=== PATIENT | female | born 1935 | race Caucasian/White ===

== ENCOUNTER 2024-04-05 13:19 | Emergency (ER) | payer OTHER ==
[~2024-04-05] VITALS: Ht 157.5 cm; Wt 63.5 kg
[2024-04-05 13:31] VITALS: BP_SYST 194; PULSE 77; RESP 17; TEMP 97.9; O2SAT 78
[2024-04-05] MEDS: cloNIDine HCL 0.1 MG TABLET PO ONE (13:46)
[2024-04-05 14:01] LABS: BASOPHILS % (AUTO) 0.6 % (0.0-2.0); EOSINOPHILS # (AUTO) 0.1 K/uL (0.0-0.4); EOSINOPHILS % (AUTO) 1.2 % (0.0-4.0); HEMATOCRIT 42.6 % (36-48); HEMOGLOBIN 14.6 g/dL (12.0-16.0); LYMPHOCYTES # (AUTO) 1.7 K/uL (1.0-5.5); LYMPHOCYTES % (AUTO) 25.2 % (20.5-51.5); MEAN CORPUSCULAR HEMOGLOBIN 32 pg (27-31); MEAN CORPUSCULAR HGB CONC 34 % (32-36); MEAN CORPUSCULAR VOLUME 93 fL (79.0-98.0); MONOCYTES # (AUTO) 0.6 K/uL (0.0-1.0); MONOCYTES % (AUTO) 8.2 % (1.7-9.3); NEUTROPHILS # (AUTO) 4.4 K/uL (1.8-7.7); NEUTROPHILS % (AUTO) 64.8 % (40.0-70.0); PLATELET COUNT (AUTO) 179 K/uL (130-430); RED CELL DISTRIBUTION WIDTH 13.2 % (9.0-15.0); WHITE BLOOD COUNT (AUTO) 6.8 K/uL (4.8-10.8)
[2024-04-05 14:20] LABS: PROTHROMBIN TIME 9.9 SECS (9.5-12.5)
[2024-04-05 14:23] LABS: ANION GAP 5 (5-15); CALCIUM 9.6 mg/dL (8.4-11.0); CARBON DIOXIDE 29 mmol/L (23-29); CHLORIDE 103 mmol/L (98-107); CREATININE 0.75 mg/dL (0.55-1.30); GLUCOSE 140 mg/dL (74-106); POTASSIUM 4.4 mmol/L (3.5-5.1); SODIUM SERUM 137 mmol/L (136-145); UREA NITROGEN, BLOOD 12 mg/dL (8-21)
[2024-04-05 14:59] VITALS: BP_SYST 161; PULSE 69; RESP 18; TEMP 98; O2SAT 100
== END 2024-04-05 15:00 | disposition home or self-care (01) ==
LOC: SED 13:19
DX: I16.0 Hypertensive urgency (principal); R07.9 Chest pain, unspecified
CPT/HCPCS: 36415; 71045; 80048; 83880; 84484; 85025; 85610; 85730; 93005; 99285

== ENCOUNTER 2024-04-08 17:07 | Inpatient (IN) | payer OTHER ==
[~2024-04-08] VITALS: Ht 160 cm; Wt 66.7 kg
[2024-04-08 17:18] VITALS: BP_SYST 158; PULSE 76; RESP 18; TEMP 98.3; O2SAT 98
[2024-04-08] MEDS: NITROGLYCERIN 1 INCH (GM) OINT. TP ONE (17:44)
[2024-04-08 17:45] LABS: BASOPHILS % (AUTO) 0.5 % (0.0-2.0); EOSINOPHILS # (AUTO) 0.1 K/uL (0.0-0.4); EOSINOPHILS % (AUTO) 1.1 % (0.0-4.0); HEMATOCRIT 40.2 % (36-48); HEMOGLOBIN 13.8 g/dL (12.0-16.0); LYMPHOCYTES # (AUTO) 2.2 K/uL (1.0-5.5); LYMPHOCYTES % (AUTO) 32.2 % (20.5-51.5); MEAN CORPUSCULAR HEMOGLOBIN 31 pg (27-31); MEAN CORPUSCULAR HGB CONC 34 % (32-36); MEAN CORPUSCULAR VOLUME 92 fL (79.0-98.0); MONOCYTES # (AUTO) 0.5 K/uL (0.0-1.0); MONOCYTES % (AUTO) 6.9 % (1.7-9.3); NEUTROPHILS % (AUTO) 59.3 % (40.0-70.0); PLATELET COUNT (AUTO) 168 K/uL (130-430); RED BLOOD CELL COUNT(AUTO) 4.39 MIL/uL (4.2-6.2); RED CELL DISTRIBUTION WIDTH 13.2 % (9.0-15.0); WHITE BLOOD COUNT (AUTO) 6.8 K/uL (4.8-10.8)
[2024-04-08] MEDS: ASPIRIN 81 MG TAB.CHEW PO ONE (17:46)
[2024-04-08] MEDS: NITROGLYCERIN 0.4 MG TAB.SUBL SL ONE (17:46)
[2024-04-08 18:08] LABS: ANION GAP 5 (5-15); CALCIUM 9.2 mg/dL (8.4-11.0); CARBON DIOXIDE 28 mmol/L (23-29); CHLORIDE 105 mmol/L (98-107); CREATININE 0.67 mg/dL (0.55-1.30); GLUCOSE 108 mg/dL (74-106); POTASSIUM 4.1 mmol/L (3.5-5.1); SODIUM SERUM 138 mmol/L (136-145); UREA NITROGEN, BLOOD 15 mg/dL (8-21)
[2024-04-08] MEDS ORDERED: ATOR40TA68 PO (18:11)
[2024-04-08] MEDS ORDERED: OFLO5DRO6 LEFT EYE (18:11)
[2024-04-08] MEDS ORDERED: LISI20TA30 PO (18:11)
[2024-04-08] MEDS ORDERED: ALBUTEROL SULFATE 0.083% 2.5 MG/3 ML VIAL.NEB INH PRN (19:00)
[2024-04-08] MEDS ORDERED: NITROGLYCERIN 0.4 MG TAB.SUBL SL PRN (19:00)
[2024-04-08] MEDS ORDERED: MORPHINE 2 MG/ML INJ. SYRINGE IVP PRN (19:00)
[2024-04-08] MEDS ORDERED: ONDANSETRON HCL 4 MG/2 ML VIAL IVP PRN (19:00)
[2024-04-08] MEDS ORDERED: HYDROcodone/ACETAMIN 10-325 MG TAB PO PRN (19:00)
[2024-04-08 19:13] LABS: PROTHROMBIN TIME 9.9 SECS (9.5-12.5)
[2024-04-08 19:17] LABS: ALBUMIN 3.6 g/dL (3.4-4.8); TOTAL BILIRUBIN 0.5 mg/dL (0.0-1.0); TOTAL PROTEIN, SERUM 7.4 g/dL (6.4-8.3)
[2024-04-08 19:27] LABS: BILIRUBIN,DIRECT 0.1 mg/dL (0.0-0.3)
[2024-04-08] MEDS: ATORVASTATIN 20 MG TABLET PO ONE (19:36)
[2024-04-08] MEDS: lisinopriL 20 MG TABLET PO ONE (19:37)
[2024-04-08 21:59] VITALS: BP_SYST 114; PULSE 84; RESP 18; TEMP 96.9
[2024-04-09] VITALS (7 sets, daily range): BP systolic 102–170; PULSE 62–96; RESP 16–20; TEMP 97.2–98.7; O2SAT 95–98
[2024-04-09] MEDS: ACETAMINOPHEN 325 MG TABLET PO PRN (03:21)
[2024-04-09 05:44] LABS: BASOPHILS % (AUTO) 0.5 % (0.0-2.0); EOSINOPHILS # (AUTO) 0.2 K/uL (0.0-0.4); EOSINOPHILS % (AUTO) 2.9 % (0.0-4.0); HEMATOCRIT 37.5 % (36-48); HEMOGLOBIN 12.7 g/dL (12.0-16.0); LYMPHOCYTES # (AUTO) 2.5 K/uL (1.0-5.5); LYMPHOCYTES % (AUTO) 43.5 % (20.5-51.5); MEAN CORPUSCULAR HEMOGLOBIN 32 pg (27-31); MEAN CORPUSCULAR HGB CONC 34 % (32-36); MEAN CORPUSCULAR VOLUME 93 fL (79.0-98.0); MONOCYTES # (AUTO) 0.5 K/uL (0.0-1.0); MONOCYTES % (AUTO) 7.9 % (1.7-9.3); NEUTROPHILS # (AUTO) 2.6 K/uL (1.8-7.7); NEUTROPHILS % (AUTO) 45.2 % (40.0-70.0); PLATELET COUNT (AUTO) 160 K/uL (130-430); RED BLOOD CELL COUNT(AUTO) 4.03 MIL/uL (4.2-6.2); RED CELL DISTRIBUTION WIDTH 13.2 % (9.0-15.0); WHITE BLOOD COUNT (AUTO) 5.8 K/uL (4.8-10.8)
[2024-04-09 07:31] LABS: ALANINE AMINOTRANSFERASE 17 U/L (12-78); ANION GAP 7 (5-15); ASPARTATE AMINOTRANSFERASE 13 U/L (10-37); CALCIUM 8.6 mg/dL (8.4-11.0); CARBON DIOXIDE 28 mmol/L (23-29); CHLORIDE 106 mmol/L (98-107); CREATININE 0.76 mg/dL (0.55-1.30); GLUCOSE 112 mg/dL (74-106); POTASSIUM 4.3 mmol/L (3.5-5.1); SODIUM SERUM 141 mmol/L (136-145); TOTAL BILIRUBIN 0.5 mg/dL (0.0-1.0); TOTAL PROTEIN, SERUM 6.4 g/dL (6.4-8.3); UREA NITROGEN, BLOOD 15 mg/dL (8-21)
[2024-04-09] MEDS: ASPIRIN 81 MG TAB.CHEW PO SCH (08:54)
[2024-04-09] MEDS: ATORVASTATIN 20 MG TABLET PO SCH (08:55)
[2024-04-09] MEDS: lisinopriL 20 MG TABLET PO SCH (08:56)
[2024-04-09] MEDS: hydrALAZINE HCL 20 MG/ML VIAL IVP PRN (08:57)
[2024-04-09] MEDS: amLODIPine BESYLATE 5 MG TABLET PO ONE (10:14)
[2024-04-09] MEDS: HYDROcodone/ACETAMIN 5-325 MG TAB (NORCO/ VICODIN) PO PRN (10:20)
[2024-04-09] MEDS ORDERED: SODIUM CHLORIDE 0.65% NASAL SPRAY NS PRN (14:00)
[2024-04-09] MEDS: LORATADINE 10 MG TABLET PO ONE (15:14)
[2024-04-09] MEDS: PANTOPRAZOLE SODIUM 40 MG/VIAL (PROTONIX) IVP ONE (15:15)
[2024-04-09] MEDS: CALCIUM CARBONATE 500 MG/ TAB.CHEW PO SCH (17:42)
[2024-04-09] MEDS: ZOLPIDEM TARTRATE 5 MG TABLET PO SCH (21:09)
[2024-04-10 01:01] VITALS: BP_SYST 138; PULSE 68; RESP 17; TEMP 98.5; O2SAT 97
[2024-04-10 04:03] LABS: BASOPHILS % (AUTO) 0.5 % (0.0-2.0); EOSINOPHILS # (AUTO) 0.2 K/uL (0.0-0.4); EOSINOPHILS % (AUTO) 2.3 % (0.0-4.0); HEMATOCRIT 38.6 % (36-48); HEMOGLOBIN 13.3 g/dL (12.0-16.0); LYMPHOCYTES # (AUTO) 2.5 K/uL (1.0-5.5); LYMPHOCYTES % (AUTO) 37.2 % (20.5-51.5); MEAN CORPUSCULAR HEMOGLOBIN 32 pg (27-31); MEAN CORPUSCULAR HGB CONC 35 % (32-36); MEAN CORPUSCULAR VOLUME 93 fL (79.0-98.0); MONOCYTES # (AUTO) 0.6 K/uL (0.0-1.0); MONOCYTES % (AUTO) 8.4 % (1.7-9.3); NEUTROPHILS # (AUTO) 3.5 K/uL (1.8-7.7); NEUTROPHILS % (AUTO) 51.6 % (40.0-70.0); PLATELET COUNT (AUTO) 171 K/uL (130-430); RED BLOOD CELL COUNT(AUTO) 4.15 MIL/uL (4.2-6.2); RED CELL DISTRIBUTION WIDTH 13.9 % (9.0-15.0); WHITE BLOOD COUNT (AUTO) 6.8 K/uL (4.8-10.8)
[2024-04-10 04:15] LABS: ALANINE AMINOTRANSFERASE 19 U/L (12-78); ANION GAP 6 (5-15); ASPARTATE AMINOTRANSFERASE 14 U/L (10-37); CALCIUM 9.7 mg/dL (8.4-11.0); CARBON DIOXIDE 29 mmol/L (23-29); CHLORIDE 104 mmol/L (98-107); CREATININE 0.75 mg/dL (0.55-1.30); GLUCOSE 137 mg/dL (74-106); POTASSIUM 4.1 mmol/L (3.5-5.1); SODIUM SERUM 139 mmol/L (136-145); TOTAL BILIRUBIN 0.5 mg/dL (0.0-1.0); TOTAL PROTEIN, SERUM 6.4 g/dL (6.4-8.3); UREA NITROGEN, BLOOD 16 mg/dL (8-21)
[2024-04-10 08:00] VITALS: BP_SYST 174; PULSE 80; RESP 18; TEMP 98.4; O2SAT 98
[2024-04-10] MEDS: LORATADINE 10 MG TABLET PO SCH (09:49)
[2024-04-10] MEDS: METOPROLOL TARTRATE 25 MG TABLET PO ONE (09:50)
[2024-04-10] MEDS: amLODIPine BESYLATE 5 MG TABLET PO SCH (09:51)
[2024-04-10] MEDS: PANTOPRAZOLE SODIUM 40 MG/VIAL (PROTONIX) IVP SCH (09:51)
[2024-04-10 12:22] VITALS: BP_SYST 152; PULSE 69; RESP 17; TEMP 97.7; O2SAT 96
[2024-04-10 15:25] VITALS: O2SAT 96
[2024-04-10 16:20] VITALS: BP_SYST 141; PULSE 68; RESP 16; TEMP 97.5; O2SAT 96
[2024-04-10 20:00] VITALS: BP_SYST 123; PULSE 71; RESP 16; TEMP 98.9; O2SAT 97
[2024-04-10] MEDS: METOPROLOL TARTRATE 25 MG TABLET PO SCH (21:07)
[2024-04-11] VITALS: BP_SYST 121; PULSE 74; RESP 16; TEMP 98.1; O2SAT 98
[2024-04-11 07:14] LABS: BASOPHILS % (AUTO) 0.4 % (0.0-2.0); EOSINOPHILS # (AUTO) 0.2 K/uL (0.0-0.4); EOSINOPHILS % (AUTO) 2.6 % (0.0-4.0); HEMATOCRIT 39.3 % (36-48); HEMOGLOBIN 13.5 g/dL (12.0-16.0); LYMPHOCYTES # (AUTO) 2.3 K/uL (1.0-5.5); MEAN CORPUSCULAR HEMOGLOBIN 32 pg (27-31); MEAN CORPUSCULAR HGB CONC 34 % (32-36); MEAN CORPUSCULAR VOLUME 93 fL (79.0-98.0); MONOCYTES # (AUTO) 0.6 K/uL (0.0-1.0); MONOCYTES % (AUTO) 8.4 % (1.7-9.3); NEUTROPHILS # (AUTO) 3.6 K/uL (1.8-7.7); NEUTROPHILS % (AUTO) 53.6 % (40.0-70.0); PLATELET COUNT (AUTO) 171 K/uL (130-430); RED BLOOD CELL COUNT(AUTO) 4.22 MIL/uL (4.2-6.2); RED CELL DISTRIBUTION WIDTH 13.5 % (9.0-15.0); WHITE BLOOD COUNT (AUTO) 6.6 K/uL (4.8-10.8)
[2024-04-11 07:43] LABS: ALANINE AMINOTRANSFERASE 13 U/L (12-78); ANION GAP 7 (5-15); ASPARTATE AMINOTRANSFERASE < 5 U/L (10-37); CALCIUM 9.5 mg/dL (8.4-11.0); CARBON DIOXIDE 28 mmol/L (23-29); CHLORIDE 104 mmol/L (98-107); CREATININE 0.72 mg/dL (0.55-1.30); GLUCOSE 129 mg/dL (74-106); POTASSIUM 4.1 mmol/L (3.5-5.1); SODIUM SERUM 139 mmol/L (136-145); TOTAL BILIRUBIN 0.3 mg/dL (0.0-1.0); TOTAL PROTEIN, SERUM 6.4 g/dL (6.4-8.3); UREA NITROGEN, BLOOD 18 mg/dL (8-21)
[2024-04-11 07:58] VITALS: BP_SYST 141; PULSE 64; RESP 16; TEMP 97.9; O2SAT 96
[2024-04-11] MEDS: lisinopriL 20 MG TABLET PO SCH (08:24)
[2024-04-11 11:20] VITALS: BP_SYST 156; PULSE 65; RESP 17; TEMP 98; O2SAT 96
[2024-04-11] MEDS ORDERED: METF-379 PO (13:51)
[2024-04-11] MEDS ORDERED: LISI20TA30 PO (13:51)
[2024-04-11] MEDS ORDERED: LORA10TA7 PO (13:51)
[2024-04-11] MEDS ORDERED: METO25TA3 PO (13:51)
[2024-04-11 16:14] VITALS: O2SAT 96
[2024-04-11 16:17] VITALS: BP_SYST 150; PULSE 87; RESP 16; TEMP 98.6; O2SAT 98
[2024-04-11] MEDS ORDERED: PRO40 PO (16:53)
== END 2024-04-11 16:10 | disposition home health service (06) | DRG 392 ==
LOC: SED 17:07 → STU 19:18
PROVIDERS: ADMIT Specialist; ATTEND Specialist
DX: K21.9 Gastro-esophageal reflux disease without esophagitis (principal); I10 Essential (primary) hypertension; E78.5 Hyperlipidemia, unspecified; I08.2 Rheumatic disorders of both aortic and tricuspid valves; Z79.899 Other long term (current) drug therapy; Z98.891 History of uterine scar from previous surgery; Z79.84 Long term (current) use of oral hypoglycemic drugs; I27.21 Secondary pulmonary arterial hypertension
CPT/HCPCS: 36415; 71045; 80048; 80053; 80076; 83037; 83880; 84484; 85025; 85610; 85730; 93005; 93306; 94760; 97116-GP; 97530-GP; 99285; C9113; G0378; J0360